=== PATIENT | female | born 1960 | race Two or more races ===

== ENCOUNTER 2024-03-18 13:42 | Emergency (ER) | payer OTHER, MEDICAID ==
[~2024-03-18] VITALS: Ht 162.6 cm; Wt 79.9 kg
[2024-03-18 14:24] LABS: Urine Bacteria None Seen /hpf (None Seen)
[2024-03-18 14:56] LABS: Urine Blood Negative /uL (Negative); Urine Clarity Clear (Clear); Urine Color Light-Yellow (Yellow); Urine Protein, UAD Negative (Negative); Urine Specific Gravity 1.005 (1.001-1.035); Urine Urobilinogen Normal (Negative); Urine WBC 1 /hpf (0 - 5); Urine pH 6.5 (5.0-9.0)
[2024-03-18 14:59] LABS: Basophils # (auto) 0.1 10 ^3/uL (0-0.2); Basophils % (auto) 0.9 % (0.0-2.0); Eosinophils # (auto) 0.1 10 ^3/uL (0-0.8); Eosinophils % (auto) 1.3 % (0.0-7.0); Hematocrit 41.9 % (36.0-46.0); Hemoglobin 14.1 g/dL (12.2-16.2); Lymphocytes # (auto) 1.8 10 ^3/uL (0.4-5.4); Lymphocytes % (auto) 26.5 % (10.0-50.0); Mean Corpuscular Hemoglobin 30.4 pg (28.0-32.0); Mean Corpuscular Hgb Conc. 33.7 g/dL (32.0-36.0); Mean Corpuscular Volume 90.1 fL (80.0-100.0); Monocytes # (auto) 0.5 10 ^3/uL (0-1.3); Monocytes % (auto) 7.4 % (0.0-12.0); Neutrophils # (auto) 4.3 10 ^3/uL (1.6-8.6); Neutrophils % (auto) 63.9 % (37.0-80.0); Nucleated Red Blood Cells % 0.1 %; Platelet Count (auto) 331 10^3/uL (140-450); Red Blood Cells 4.66 10^6/uL (4.0-5.20); Red Cell Distribution Width 13.7 % (11.8-14.3); White Blood Cell 6.7 10^3/uL (4.4-10.8)
[2024-03-18 15:09] LABS: Calcium 10.5 mg/dL (8.7-10.4); Chloride 104 mmol/L (98-107); Potassium 3.7 mmol/L (3.5-5.1); Sodium 141 mmol/L (136-145)
[2024-03-18 15:10] LABS: Anion Gap 8 (5-15); Carbon Dioxide 29 mmol/L (20-30)
[2024-03-18 15:15] LABS: BUN/Creatinine Ratio 15.2 (10.0-20.0); Blood Urea Nitrogen 16 mg/dL (9-23); Glucose 93 mg/dL (74-106)
[2024-03-18 15:20] VITALS: BP 175/96; PULSE 79; RESP 15; O2SAT 98
[2024-03-18] MEDS: cloNIDine HCL 0.1 MG TAB PO ONE (15:25)
[2024-03-18] MEDS: ACETAMINOPHEN 325 MG TAB PO ONE ×2 (15:29→15:30)
[2024-03-18 16:42] VITALS: TEMP 98.7
== END 2024-03-18 18:16 | disposition home or self-care (01) ==
LOC: ER 13:42
DX: I10 Essential (primary) hypertension (principal); R10.2 Pelvic and perineal pain; R10.30 Lower abdominal pain, unspecified; R30.0 Dysuria; R51.9 Headache, unspecified; E78.5 Hyperlipidemia, unspecified; F12.90 Cannabis use, unspecified, uncomplicated; Z87.442 Personal history of urinary calculi; Z90.89 Acquired absence of other organs
CPT/HCPCS: 36415; 74176; 80048; 81001; 85025